=== PATIENT | male | born 1985 | race Caucasian/White ===

== ENCOUNTER 2024-12-18 17:44 | Emergency (ER) | payer SELFPAY ==
[2024-12-18 17:45] VITALS: BP 144/102
--- NOTE | 2024-12-18 20:28 | ED.GENMED ---
History of Present Illness
General
Chief Complaint: Musculo-Skeletal Complaint
Source: patient
Exam Limitations: none
Time Seen by Provider: 12/18/24 19:00
Nursing documentation reviewed up to this point in time: agreed with
History of Present Illness
History of Present Illness:
Patient is a 39-year-old male who presents to the emergency department for evaluation of right ankle injury. Patient states he accidentally had a mechanical misstep off of his porch earlier today inverting his right ankle. He has been able to
ambulate minimally with some discomfort. He noted significant swelling in right ankle prompting visit to the emergency department. He denies any numbness/tingling in affected extremity/foot. He denies any associated head strike or loss of
consciousness. No other concerns today.
Past History
Past History
ED Past Medical History: None
Social History
Tobacco: Non-smoker
Personal: Single
Living: with family
Employment: Employed
Review of Systems
Review of Systems
Allergies reviewed?: Yes
All Other Systems: ROS reviewed and negative except as documented in HPI and ROS
Phy Exam
Physical Exam
Physical Exam:
Vitals: Hypertensive, otherwise vital signs stable. Afebrile
General: Patient is well appearing, no acute distress
Skin: Warm and dry, no rashes or lesions
Head: Normocephalic, atraumatic
Throat: Protecting airway
Neck: Normal ROM, no cervical spine tenderness
Cardiac: Regular rate
Pulm: No apparent respiratory distress
Abdomen: Nondistended
Extremities: Edema of right ankle most notable around lateral malleolus with minimal tenderness just anterior to lateral malleolus at insertion site of ATFL. No bony tenderness of bilateral malleoli, midfoot, hindfoot. No calcaneal tenderness or
tenderness at right fifth metatarsal. No tenderness at head of right fibula. 2+ palpable pulse in right foot with normal capillary refill and sensation. Patient has adequate ability to dorsiflex/plantarflex right ankle. Achilles intact.
Neuro: Grossly intact
Psychiatric: Normal affect.
Course
Orders/Labs/Results
Orders:
Orders
12/18/24 17:45
Ankle, Right 3 view CR [CR Ankle - Right Min 3 Views *] Urgent
Comment:
Reason For Exam: injury
Vital Signs
Initial and Last Documented VS:
Initial Vital Signs
Temp Pulse Resp BP Pulse Ox
98.4 F 88 16 144/102 100
12/18/24 17:45 12/18/24 17:45 12/18/24 17:45 12/18/24 17:45 12/18/24 17:45
Last Documented Vital Signs
Temp Pulse Resp BP Pulse Ox
98.4 F 88 16 144/102 100
12/18/24 17:45 12/18/24 17:45 12/18/24 17:45 12/18/24 17:45 12/18/24 20:28
MDM/Problems Addressed
Differential Diagnosis Includes:
Not limited to: Ankle sprain, ankle fracture, foot fracture, Achilles tendon injury, etc.
MDM/Problems Addressed:
39-year-old male presenting with right ankle pain after mechanical inversion injury earlier today. No associated head strike or other injuries. He is able to bear some weight although with pain. No numbness/tingling in affected leg/foot. Patient
hypertensive, otherwise has stable vital signs on arrival. Physical exam as above. X-ray of right ankle was obtained which shows no evidence of acute fracture. Ultimately suspect likely ankle sprain. Will place patient in Aircast, Kwesi wrap and
provide crutches for ambulation over the next few days. Advised rest, ice, compression, elevation. Discussed NSAIDs for pain. Information given for orthopedic referral if needed. Return precautions discussed. Patient stable for discharge home
Chronic conditions affecting care:
N/A
Acute Exacerbation and/or Progression of Chronic Illness:
N/A
*Radiology
Radiology exam reviewed: preliminary read by ED provider (Right ankle x-ray reviewed by me-no acute fracture) and radiology read reviewed
*Pulse Oximetry
SaO2: 100
Oxygen Mode of Delivery: Room air
Patient hypoxic: no
*EKG
Interpreted by ED Provider?: NA
*Tobacco Scrap Sifter Interpretation
Rate: Tobacco Scrap Sifter- N/A
*Critical Care Note
Total Time (30-74mins, 75-104mins- exclusive of procedures): Not Applicable
ED Attending Note
-
Portions of this chart may have been created with voice recognition software.� Occasional wrong word or��sound alike� substitutions may have occurred due to the inherent limitations of voice recognition software.
Discharge Plan
Departure
Patient Disposition: Home (Routine Discharge)
Date of Disposition: 12/18/24
Time of Disposition: 19:15
Patient with high blood pressure during this ER visit?: Yes
Condition: Good
Discharge Problem:
Right ankle injury
Instructions: How to Use Crutches, Ankle sprain - ED discharge instructions, BLOOD PRESSURE
Prescriptions:
No Action
No Current Medications
0
Referrals:
Devon Metz MD [Active, Orthopedics] - As needed
Activity Restrictions/Additional Instructions:
RETURN TO THE EMERGENCY DEPARTMENT WITH ANY NUMBNESS/TINGLING IN RIGHT ANKLE/FOOT, INTRACTABLE PAIN, WORSENING OF CURRENT SYMPTOMS, OR ANY OTHER CONCERNS
- As discussed�your x-ray showed no evidence of acute fracture today you likely sustained an ankle sprain. Please keep ankle compressed with Aircast, Kwesi bandage and use crutches to ambulate over the next few days. Continue to ice and elevate your
right ankle frequently. Take Motrin and/or Tylenol as needed for pain.
- Follow-up with orthopedics for further evaluation/management if symptoms persist/worsen as you may require further imaging.
Monitor your symptoms closely and return to the emergency department with any acute worsening/new symptoms or any other concerns
Interventions
Interventions:
*Risk Screen - Suicide Last Done: 12/18/24 17:47
*General Assessment Last Done: 12/18/24 18:30
*Neglect/Abuse Screening Last Done: 12/18/24 17:47
*ED COVID-19 Vaccine History Last Done: 12/18/24 18:30
*Nursing Disposition Last Done: 12/18/24 19:30
ED-Musculoskeletal Assessment Last Done: 12/18/24 18:30
Discharge Date and Time
Discharge Date/Time: 12/18/24 19:30
Print Language: SOMALI
== END 2024-12-18 19:30 | disposition home or self-care (01) ==
LOC: EMR 17:44
PROVIDERS: EMERGENCY PHYSICIAN Emergency Medicine
DX: S99.911A Unspecified injury of right ankle, initial encounter (principal); X50.1XXA Overexertion from prolonged static or awkward postures, initial encounter; R60.0 Localized edema; R03.0 Elevated blood-pressure reading, without diagnosis of hypertension
CPT/HCPCS: 99283; 29515; 73610